=== PATIENT | male | born 1930 | race Caucasian/White ===

== ENCOUNTER 2017-09-14 18:01 | Inpatient (IN) | payer MEDICARE ==
[~2017-09-14] VITALS: Ht 172.7 cm; Wt 84.4 kg
[2017-09-14] VITALS (25 sets, daily range): BP systolic 67–138; BP diastolic 47–108; PULSE 123–128; RESP 19–31
[~2017-09-14 18:01] MED LIST: CA CHLORIDE 10% 10 ML SYRINGE ONE; EPINEPHrine 0.1 MG/ML SYG ONE; NA BICARBONATE 8.4% 50 ML SYG ONE
[2017-09-14] MEDS ORDERED: SOD CHLORIDE 0.9% 1,000 ML IV ONE (19:00)
[2017-09-14] MEDS ORDERED: DEXTROSE 5%-0.9% NACL 1,000 ML IV SCH (19:00)
[2017-09-14] MEDS ORDERED: DOCUSATE SODIUM 10 MG/ML (10ML CUP) GTB PRN (20:31)
[2017-09-14] MEDS ORDERED: PANTOPRAZOLE 40 MG INJ IV SCH (20:31)
[2017-09-14] MEDS ORDERED: CLOTRIMAZOLE 1% 30 GM CR TOP PRN (20:31)
[2017-09-14] MEDS ORDERED: CHOLECALCIFEROL 2,000 UNIT CAP GTB SCH (20:31)
[2017-09-14] MEDS ORDERED: VANCOMYCIN IV PER PHARMACY XX SCH (20:31)
[2017-09-14] MEDS ORDERED: ALBUTEROL/IPRATROPIUM (NEB) 3 ML AMP NEB SCH (20:31)
[2017-09-14] MEDS ORDERED: ONDANSETRON 4 MG INJ IV PRN (20:31)
[2017-09-14] MEDS ORDERED: ARTIFICIAL TEARS 15 ML OPH BOTH EYES PRN (20:31)
[2017-09-14] MEDS ORDERED: ACETYLCYSTEINE 20% 4 ML VIAL NEB SCH (20:31)
[2017-09-14] MEDS ORDERED: ZINC OXIDE 40% DESITIN 56 GM OINT TOP PRN (20:31)
[2017-09-14] MEDS ORDERED: ASPIRIN 81 MG TAB GTB SCH (20:31)
[2017-09-14] MEDS ORDERED: POLYETHYLENE GLYCOL 17 GM PACKET GTB PRN (20:31)
[2017-09-14] MEDS: FLUCONAZOLE 100 MG/NS (PMX) 50 ML IVPB SCH ×2 (20:31→21:49)
[2017-09-14] MEDS ORDERED: SALINE 0.65% 45 ML NAS SPRAY NASAL PRN (20:31)
[2017-09-14] MEDS ORDERED: SODIUM CHLORIDE 0.9% 1L BAG IV* SCH (20:31)
[2017-09-14] MEDS ORDERED: LORATADINE 10 MG TAB GTB SCH (20:31)
[2017-09-14] MEDS ORDERED: NA PHOSPHATE/BIPHOS 133 ML ENEMA PR PRN (20:31)
[2017-09-14] MEDS ORDERED: BALSAM PERU/CASTOR OIL 60 GM TUBE TOP PRN (20:31)
[2017-09-14] MEDS ORDERED: LACTOBACILLUS RHAMNOSUS CAP GTB SCH (20:31)
[2017-09-14] MEDS ORDERED: GUAIFENESIN 20 MG/ML 5ML CUP GTB PRN (20:31)
[2017-09-14] MEDS ORDERED: METOCLOPRAMIDE 10 MG INJ IV PRN (20:31)
[2017-09-14] MEDS ORDERED: ACETAMINOPHEN 650 MG SUPP PR PRN (20:31)
[2017-09-14] MEDS ORDERED: VANCOMYCIN HCL 250 MG/5ML POSYG GTB SCH (20:31)
[2017-09-14] MEDS ORDERED: BALSAM PERU/CASTOR OIL 60 GM TUBE TOP SCH (20:31)
[2017-09-14 20:54] LABS: AADO2 Arterial 200.4 mmHg (7.0-24.0); Allen Test ACCEPTAB; Arterial Base Excess -0.8 mmol/L (-3.0-3); Arterial COHb 0.3 % (0.0-3.0); Arterial Fraction of Oxyhgb 91.8 % (93.0-99.0); Arterial HCO3 19.7 mmol/L (22.0-26.0); Arterial MetHb 0.3 % (0.0-1.5); MODE VENT - AC
[2017-09-14] MEDS: PROPRANOLOL 20 MG TAB GTB SCH (21:00)
[2017-09-14] MEDS ORDERED: NORepinephrine 8MG/250 ML (PMX 250 ML IV SCH (21:00)
[2017-09-14] MEDS: DEXTROSE 5%-0.9% NACL 1,000 ML IV SCH (21:02)
[2017-09-14] MEDS: MEROPENEM 500MG/50 ML (PMX) 50 ML IVPB SCH (21:48)
[2017-09-14] MEDS: Metronidazole 500 MG in NS 100 ML IVPB SCH ×2 (21:49→22:00)
[2017-09-14] MEDS: CHLORHEXIDINE GLUCONATE 15 ML UD CUP MT SCH (21:50)
--- NOTE | 2017-09-14 22:08 | CONS ---
Date/Time of Note Date/Time of Note DATE: 09/14/17 TIME: 22:07 Assessment/Plan Assessment/Plan Additional Assessment/Plan consultation written in chart but account somehow changed and is in patients "other reports". here is copy Consultation Date/Time of Note Date/Time of Note DATE: 09/14/17 TIME: 19:55 Assessment/Plan Assessment/Plan Problems: (1) Obstructed internal hernia (2) Ischemia, bowel (3) Pneumatosis of intestines Additional Assessment/Plan 87M with multiple medical comorbidities noted to have recent distention, tachycardia, hypotension, leukocytosis, KUB and CT as above. looks to me internal hernia with bowel ischemia, pneumatosis. Prognosis VERY poor given medical history and acute events. Discussed care with patients family. Details of condition given to them at bedside. Long family discussion had. Reviewed patients wishes, POLST/Advanced Directives with family. Surgery offered but declined. Patients and family state that he would not want life support or invasive procedures. They express that he would want medications and comfort. No CPR / compressions. -Medical care and management as per ICU. very poor prognosis given history and current condition. -IV Abx and meds -pain meds -hold tube feeds as he will not tolerate them -IV fluids -Will have to discuss TPN if becomes stable. Thank you for allowing me to participate in this patients care. Consultation Date/Type/Reason Admit Date/Time Date of Consultation: Sep 14, 2017 Type of Consultation: Surgery Reason for Consultation Bowel ischemia, pneumatosis, internal hernia Hx of Present Illness 87 year old male with multiple medical comorbidities who has been bed bound and in nursing facility for some time now with trach/peg was urgently transferred to ICU for evaluation. Patient was at outside facility where during work up for abdominal distention he was noted to have abnormal xrays which prompted a CT scan that demonstrated likely internal hernia with pneumatosis, venous gas, and possible bowel ischemia. As per family he has note been responsive for some time now. He was recently at [facility] then released to SNF. He was not tolerating feeds and noted to be distended. KUB ordered and demonstrated possible free air, bowel digitation. CT as above. Surgery called to evaluate upon transfer to ICU. Medical records that are available were reviewed. Radiological exams reviewed. Labs reviewed. Patient examined. Long discussion with family at bedside about history and care. cannot obtain given patients medical condition Subjective hx not possible: pt non-verbal, pt critical, pt critical status Constitutional: diaphoresis Past Medical History Medical History: other (multiple; see records and HPI) Past Surgical History Trach and PEG Family History Significant Family History: other (non contributory. 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 Exam/Review of Systems Exam Constitutional: frail, non-verbal Head: atraumatic Eyes: nl conjunctiva ENMT: nl external ears & nose Neck: other (stiff/ trach) Respiratory: other (trach on vent ) Cardiovascular: edema, other (tachy, hypotensive ) Gastrointestinal: distended, firm, surgical scars Musculoskeletal: muscle weakness Extremities: edema Neurological: unresponsive Skin: ecchymosis Results Result Diagram: 09/14/17 0711 09/14/17 0711 Results 24 hrs Laboratory Tests Test 09/14/17 07:11 White Blood Count 23.2 H Red Blood Count 4.03 L Hemoglobin 12.4 L Hematocrit 37.8 L Mean Corpuscular Volume 93.8 Mean Corpuscular Hemoglobin 30.8 Mean Corpuscular Hemoglobin Concent 32.8 Red Cell Distribution Width 15.9 H Platelet Count 352 Mean Platelet Volume 11.2 H Neutrophils % 86.9 H Lymphocytes % 4.6 L Monocytes % 7.7 Eosinophils % 0.0 Basophils % 0.2 Nucleated Red Blood Cells % 0.0 Neutrophils # 20.1 H Lymphocytes # 1.1 Monocytes # 1.8 H Eosinophils # 0.0 Basophils # 0.1 Nucleated Red Blood Cells # 0.0 Prothrombin Time 15.1 H Prothrombin Time Ratio 1.2 INR International Normalized Ratio 1.17 Activated Partial Thromboplast Time 32.6 Sodium Level 139 Potassium Level 4.5 Chloride Level 101 Carbon Dioxide Level 25 Anion Gap 18 H Blood Urea Nitrogen 22 H Creatinine 1.07 Glucose Level 235 H Calcium Level 9.1 Phosphorus Level 2.5 Magnesium Level 2.0 Total Bilirubin 0.9 Direct Bilirubin 0.00 Indirect Bilirubin 0.9 Aspartate Amino Transf (AST/SGOT) 29 Alanine Aminotransferase (ALT/SGPT) 23 Alkaline Phosphatase 76 Total Protein 7.2 Albumin 3.2 L Globulin 4.00 H Albumin/Globulin Ratio 0.80 SUSAN CERVANTES MD Sep 14, 2017 20:10 <Electronically signed by SUSAN CERVANTES MD> 09/14/172009 Consultation Date/Type/Reason Admit Date/Time Sep 14, 2017 at 18:24 Exam/Review of Systems Vital Signs Vitals Vital Signs Date Time Temp Pulse Resp B/P Pulse Ox O2 Delivery O2 Flow Rate FiO2 09/14/17 20:57 126 30 100 40 09/14/17 18:45 76/60 09/14/17 18:21 98.0 Mechanical Ventilator Trach Collar Results Results 24 hrs Laboratory Tests Test 09/14/17 20:00 Blood Gas Specimen Source Blood arterial Arterial Blood Date Drawn 09/14/2017 8:40:18 PM Arterial Blood pH (Temp corrected) 7.563 *H Arterial Blood pCO2 (Temp correct) 22.4 L Arterial Blood pO2 (Temp corrected) 59.0 L Arterial Blood HCO3 19.7 L Arterial Blood Base Excess -0.8 Arterial Blood Oxygen Saturation 92.4 L Contreras Test ACCEPTAB Arterial Blood Gas Puncture Site Right Radial Arterial Blood Carboxyhemoglobin 0.3 Arterial Blood Methemoglobin 0.3 Blood Gas A-a O2 Differential 200.4 H Oxyhemoglobin Percent 91.8 L Total Hemoglobin 12.0 Blood Gas Temperature 37.0 Blood Gas Respiration Rate 12.0 Blood Gas Actual Respiration Rate 30 Blood Gas Modality VENT - AC FiO2 40.0 Blood Gas Tidal Volume 500.0 Blood Gas Low PEEP Setting 5.0 Blood Gas Critical Value Read Back SHAUNA CHIN Blood Gas Notified Whom LAURIE NOVAK Blood Gas Notified Time 09/14/2017 8:53:18 PM Medications Medications Current Medications Aspirin (Aspirin) 81 mg DAILY GTB ; Start 09/14/17 at 20:31 Chlorhexidine Gluconate (Peridex) 15 ml Q12 MT Last administered on 09/14/17t 21:50; Admin Dose 15 ML; Start 09/14/17 at 20:31 Ondansetron HCl (Zofran Inj) 4 mg Q6H PRN IV NAUSEA AND/OR VOMITING; Start 09/14/17 at 20:31 Propranolol HCl (Inderal) 20 mg BID GTB ; Start 09/14/17 at 20:31 Sodium Biphosphate/ Sodium Phosphate (Fleet Enema) 133 ml DAILY PRN MT CONSTIPATION; Start 09/14/17 at 20:31 Acetaminophen (Tylenol Supp) 650 mg Q4H PRN MT FEVER OR MILD PAIN; Start at 20:31 Lactobacillus Acidophilus/ Rhamnosus (Culturelle) 1 cap DAILY GTB ; Start at 20:31 Eye Lubricant (Artificial Tears Oph) 1 drop QID PRN BOTH EYES DRY EYES; Start 09/14/17 at 20:31 Loratadine (Claritin) 10 mg DAILY GTB ; Start 09/14/17 at 20:31 Cholecalciferol (Vitamin D) 2,000 unit DAILY GTB ; Start 09/14/17 at 20:31 Clotrimazole (Lotrimin Cr) 1 applic BID PRN TOP RASHES; Start 09/14/17 at 20:31 Guaifenesin (Robitussin Liquid Cup) 200 mg Q6H PRN GTB COUGH; Start 09/14/17 at 20:31 Polyethylene Glycol (Miralax) 17 gm DAILY PRN GTB CONSTIPATION; Start 09/14/17 at 20:31 Zinc Oxide (Desitin Maximum Strength) 1 applic TID PRN TOP WOUND CARE AND DIAPER CHANGE; Start 09/14/17 at 20:31 Simethicone (Mylicon) 80 mg QID PRN GTB DISTENSION/GAS/BLOATING; Start at 20:31 Sodium Chloride (Deep Sea) 2 spray QID PRN NASAL NASAL DRYNESS; Start 09/14/17 at 20:31 Docusate Sodium (Colace Liquid Cup) 100 mg BID PRN GTB CONSTIPATION; Start 09/14/17 at 20:31 Metoclopramide HCl (Reglan) 5 mg Q8H PRN IV DISTENTION; Start 09/14/17 at 20:31 Erythromycin Ethylsuccinate 200 mg 200 mg Q6 GTB ; Start 09/14/17 at 20:31 Dextrose/Sodium Chloride (D5-NS) 1,000 ml @ 125 mls/hr Q8H IV Last administered on 09/14/17t 21:02; Admin Dose 125 MLS/HR; Start 09/14/17 at 20:31 Pantoprazole (Protonix Iv) 40 mg DAILY@06 IV ; Start 09/14/17 at 20:31 Vancomycin HCl 250 mg 250 mg Q6 GTB ; Start 09/14/17 at 20:31; Status Future Hold Meropenem/Sodium Chloride 50 ml @ 100 mls/hr Q8 IVPB Last administered on 09/14 21:48; Admin Dose 100 MLS/HR; Start 09/14/17 at 20:31 Fluconazole/ Sodium Chloride (Diflucan 100 Mg/ NS (Pmx)) 50 ml @ 50 mls/hr Q24H IVPB ; Start 09/14/17 at 20:31 Vancomycin HCl PER PHARMACY DOSING NOTE XX ; Start 09/14/17 at 20:31 Metronidazole 100 ml @ 100 mls/hr Q8 IVPB Last administered on 09/14/17 21:49 ; Admin Dose 100 MLS/HR; Start 09/14/17 at 20:31 Vancomycin HCl 1.25 gm/Sodium Chloride 250 ml @ 83.333 mls/ hr Q24H IVPB ; Start 09/15/17 at 17:30 Norepinephrine 250 ml @ 3.75 mls/hr TITRATE IV ; Start 09/14/17 at 21:00; Stop 09/15/17 at 20:00 Norepinephrine/ Dextrose (Levophed/D5W) 500 ml @ 0 mls/hr TITRATE IV ; Start at 21:00 SUSAN CERVANTES MD Sep 14, 2017 22:08
[2017-09-14] MEDS: ERYTHROMYCIN ETHYL SUCC (80 MG/ML PO SYG) GTB SCH (23:11)
[2017-09-15] VITALS (35 sets, daily range): BP systolic 70–145; BP diastolic 35–122; PULSE 0–135; RESP 0–32; Ht 172.7 cm; Wt 84.4 kg
[2017-09-15] MEDS: ERYTHROMYCIN ETHYL SUCC (80 MG/ML PO SYG) GTB SCH ×2 (06:15→11:44)
[2017-09-15] MEDS: MEROPENEM 500MG/50 ML (PMX) 50 ML IVPB SCH (06:15)
[2017-09-15] MEDS: Metronidazole 500 MG in NS 100 ML IVPB SCH (06:16)
[2017-09-15] MEDS: DEXTROSE 5%-0.9% NACL 1,000 ML IV SCH (07:00)
[2017-09-15] MEDS ORDERED: ALBUTEROL HFA 8 GM INHALER INH SCH (08:00)
[2017-09-15] MEDS ORDERED: IPRATROPIUM (HFA) 12.9 GM INHALER INH SCH (08:00)
[2017-09-15] MEDS ORDERED: LIDOCAINE 1% (MPF) 5 ML VIAL SC ONE (08:30)
[2017-09-15 08:50] LABS: ABNORMAL IP MESSAGE 1; HEMOGLOBIN 10.9 g/dl (14.0-18.0); MEAN CORPUSCULAR HEMOGLOBIN 31.1 pg (29.0-33.0); MEAN CORPUSCULAR HGB CONC 32.1 g/dl (32.0-37.0); MEAN CORPUSCULAR VOLUME 96.9 fl (82.0-101.0); MEAN PLATELET VOLUME 11.7 fl (7.4-10.4); PLATELET COUNT 241 10^3/UL (140-415); POSITIVE DIFF @See below; RED BLOOD COUNT 3.51 10^6/ul (4.70-6.10); RED CELL DISTRIBUTION WIDTH 16.7 % (11.5-14.5); WHITE BLOOD COUNT 21.9 10^3/ul (4.8-10.8)
[2017-09-15 08:56] LABS: CALCIUM 8.1 mg/dl (8.4-10.2); CREATININE 1.67 mg/dl (0.61-1.24)
[2017-09-15] MEDS: PROPRANOLOL 20 MG TAB GTB SCH (09:00)
[2017-09-15 09:53] LABS: ANISOCYTOSIS 1+ (0-0); BURR CELLS 2+ (0-0); EOSINOPHILS % (M) 2 % (0-7); METAMYELOCYTES %M 2 % (0-0); MONOCYTES % (M) 11 % (0-11); PLATELET ESTIMATE NORMAL; POIKILOCYTOSIS 3+ (0-0); POLYCHROMASIA 3+ (0-0)
--- NOTE | 2017-09-15 11:00 | PN ---
Date/Time of Note Date/Time of Note DATE: 09/15/17 TIME: 10:53 Assessment/Plan Lines/Catheters IV Catheter Type (from Nrs): Peripheral IV Reyes in Place (from Nrs): Yes Subjective 24 Hr Interval Summary patient seen and examined at bedside. required pressors overnight. wbc improved today. cr elevated. minimal urine output. Subjective hx not possible: pt non-verbal, pt critical, pt critical status Feeding: NPO Additional Comments 87 year old critically ill male who presented with CT findings of internal hernia, pneumatosis, and possible bowel ischemia. After long discussion with family at bedside last night they had expressed that in his advanced directives he did not want life support, chest compressions, or invasive procedures. They stated he would want medical management. Overnight hypotensive, tachycardic, required pressors. On Abx. leukocytosis improved, renal function decline, no urine output. Had another discussion with family and now they are unsure and have considerations for more invasive plans. They requested to the primary team for a second opinion which I think is very fair and warranted. Continue with medical management. will await a second opinion. Exam/Review of Systems Vital Signs Vitals Vital Signs Date Time Temp Pulse Resp B/P Pulse Ox O2 Delivery O2 Flow Rate FiO2 09/15/17 09:45 116 28 138/64 09/15/17 09:00 Mechanical Ventilator 09/15/17 08:00 98.3 09/15/17 08:00 40 09/15/17 05:40 100 Intake and Output 09/14/17 09/14/17 09/15/17 15:00 23:00 07:00 Intake Total 1450 ml 844.8 ml Output Total 30 ml Balance 1420 ml 844.8 ml Results Result Diagram: 09/15/17 0802 09/15/17 0802 SUSAN CERVANTES MD Sep 15, 2017 11:00
[2017-09-15] MEDS: CHLORHEXIDINE GLUCONATE 15 ML UD CUP MT SCH (11:33)
[2017-09-15] MEDS: BALSAM PERU/CASTOR OIL 60 GM TUBE TOP SCH ×2 (11:33)
--- NOTE | 2017-09-15 11:58 | HP ---
DATE OF ADMISSION: 09/14/2017 HISTORY OF PRESENT ILLNESS: The patient is an 87-year-old gentleman with past medical history of Pa rkinson disease, diabetes, hypoxemic respiratory failure on mechanical ventilation. Patient transfe rred from [place] after a short 24-hour stay, having come from [place] after a prolonged hospitalizat ion for a complex hospital course including respiratory failure requiring tracheostomy, healthcare-a ssociated pneumonia, GJ tube malfunction with previous episodes of coffee-ground emesis. The patien t on admission noted to have vomiting and had a CT scan done, which showed likely internal hernia wi th pneumatosis, venous gas and possible bowel ischemia. Surgery was called to evaluate and after a long discussion, recommended medication management in light of the poor prognosis. PAST MEDICAL HISTORY: Significant for the above. MEDICATIONS: Currently include: 1. Vancomycin. 2. Albuterol. 3. Atrovent. 4. Norepinephrine. 5. Peridex. 6. Zofran. 7. Propranolol. 8. Fleets enema. 9. Lactobacillus. 10. Loratadine. 11. Cholecalciferol. 12. Clotrimazole cream. 13. Guaifenesin. 14. Polyethylene glycol. 15. Simethicone. 16. Sodium chloride spray. 17. Colace liquid. 18. Reglan. 19. Erythromycin. 20. Protonix. 21. Merrem. 22. Fluconazole. 23. Vancomycin. 24. Metronidazole. ALLERGIES: PATIENT HAS ALLERGY TO SULFA. SOCIAL HISTORY: Doesn't smoke, drink or use IV drugs. FAMILY HISTORY: No history of kidney disease. REVIEW OF SYSTEMS: A 14-point review of systems is attempted and negative unless otherwise stated. Patient is notable to have currently poor urine output since admission. PHYSICAL EXAMINATION: VITAL SIGNS: We see temperature 98, blood pressure is 90/70, heart rate 128. HEENT: Head is normocephalic, atraumatic. Pupils are hard to examine; eyes are deviated somewhat t o the right, but he is lying on his right side again. Mouth and throat: Limited exam. NECK: Fairly supple, without masses. HEART: Regular rate and rhythm. Heart tachy rate, but normal. Heart sounds are distant without mu rmurs or gallops appreciated. LUNGS: Bilateral rhonchi, no jany wheezing noted. ABDOMEN: Moderately distended. No bowel sounds are noted. G-J tube is in place. Some dark red bl ood was obtained from the tube. EXTREMITIES: No clubbing, cyanosis, edema. SKIN: Shows no rashes. NEUROLOGIC: The patient responds to noxious stimuli, moves extremities somewhat. Exam shows CT as above. LABORATORY EVALUATION: Show white count 21.9, hemoglobin 11, hematocrit 34. Sodium is 144, potassi um 4.0, BUN 32, creatinine 1.67. Chest x-ray and CT are reviewed with the radiologist. Plan of care was discussed in detail with the family, who have agreed to DNR. This was a greater than 30-minute discussion. However, I asked for a second opinion surgical consul tation. IMPRESSION: 1. Acute hypoxemic respiratory failure on ventilation. Continue vent support. 2. Shock, likely septic from intraabdominal infection. Options were discussed as far as a surgical and recommended by surgery to do medical route. Continue broad spectrum antibiotics. ID is follow ing. 3. Status post Pseudomonas aeruginosa pneumonia, on antibiotics per recommendation. 4. Tachycardia, which appears to be chronic, but probably physiologic in this situation, looks to b e sinus tachycardia at this time. Cardiology may need to be followed up. 5. Probable internal hernia with bowel ischemia pneumatosis. Recommended nonsurgical approach curr ently. May be just jany ischemic bowel. I explained to the family, who requested a second opinion , surgical evaluation which I've consulted. 6. History of borderline diabetes or jany diabetes. Try to get old records. Blood glucose is 249 here, which may be reactive post-acute kidney injury, possibly related to sepsis with ATN. Support skip care for the , no indication for dialysis yet. 7. Anemia, mild, worsening, possibly related to bleeding. Monitor serially. 8. History of parkinsonism and dementia, per report. Hold off on medicines at this time. CRITICAL CARE TIME: Greater than 60 minutes. Discussed case with Dr. Christopher Randolph. Dictated By: BOBBY PALM MD DF/ROSALINO Conf#: [id number] DID#: [id number] CC: MICHAEL FERREIRA DO;*EndCC*
--- NOTE | 2017-09-15 12:56 | PN ---
Date/Time of Note Date/Time of Note DATE: 09/15/17 TIME: 12:53 Assessment/Plan Lines/Catheters IV Catheter Type (from Nrsg): Peripheral IV Reyes in Place (from Nrsg): Yes Subjective 24 Hr Interval Summary Additional Comments Overhead Code Blue for patient while in hospital. Came to bedside. Patient hypoxic with no cardiac activity receiving medical ACLS support. As per report , quickly became bradycardic then asystole. No response with optimal medical intervention. As per family request prior no chest compressions or invasive procedures performed. Unfortunately unable to regain vitals. patient pronounced. family at bedside. Exam/Review of Systems Vital Signs Vitals Vital Signs Date Time Temp Pulse Resp B/P Pulse Ox O2 Delivery O2 Flow Rate FiO2 09/15/17 12:48 30 100 09/15/17 11:20 111 99 09/15/17 09:45 138/64 09/15/17 09:00 Mechanical Ventilator 09/15/17 08:00 98.3 Intake and Output 09/14/17 09/14/17 09/15/17 14:59 22:59 06:59 Intake Total 1275 ml 1019.8 ml Output Total 25 ml 5 ml Balance 1250 ml 1014.8 ml Results Result Diagram: 09/15/17 0802 09/15/17801 SUSAN CERVANTES MD Sep 15, 2017 12:56
--- NOTE | 2017-09-15 12:58 | EN ---
Date/Time of Note Date/Time of Note DATE: 09/15/17 TIME: 12:53 Event Note Medicine Medicine Event Note Called to see patient--recently transferred to the ICU from [facility] with an intra-abdominal catastrophy and DNR status (chemical code okay)-- for acute onset bradycardia with rapid evolution to PEA. Given that patient was DNR, chemical code with 3 rounds of epinephrine IVP, along with CaCl and NaHCO3 pushes, was initiated. Family was notified and the chemical code was aborted after ~ 15 minutes. Patient removed from the ventilator and pronounced at 12:52 pm. MERCY CLANCY MD Sep 15, 2017 12:58
[2017-09-15] MEDS ORDERED: VANCOMYCIN 1.25 GM in SOD CHLORIDE 0.9% 250 ML IVPB SCH (17:30)
--- NOTE | 2017-09-17 07:20 | PN ---
DATE: 09/15/2017 INFECTIOUS DISEASE PROGRESS NOTE SUBJECTIVE: Patient was transferred to ICU from [facility] secondary to septic shock. He is n onverbal, noncommunicative, obtunded, in no distress. He is currently off pressors since 7 a.m. VITAL SIGNS: Temperature 98.3, pulse 111, respirations 30, blood pressure 138/64, saturation 99 on 40 FIO2. LABORATORY DATA: WBC 21.9, H and H 10.9 and 34, platelets 241, bands 40. Normal lytes, BUN 32, cre atinine 1.67. DIAGNOSTICS: CT of the abdomen revealed multiple loops of dilated fluid-filled small bowel. Air is noted within the folds of the mid to distal jejunum, highly concerning for pneumatosis and underlyi ng bowel ischemia. There are multiple foci of extraluminal air which appeared to be located within mesenteric vascular structures, highly concerning for mesenteric venous air. Questionable small-bow el obstruction. Air identified also involves the stomach, worrisome for gastric emphysema. Multipl e foci of air noted within the left lower liver, suspicion for portal venous air. Diffuse atheroscl erosis of the aorta. A percutaneous feeding tube with distal tip within a dilated loop of proximal jejunum. INDWELLINGS: Trach, PEG, Reyes. ANTIMICROBIALS: 1. Vancomycin 2. Meropenem. 3. Fluconazole. 4. Flagyl. PHYSICAL EXAMINATION: GENERAL: This is a cachectic, chronically ill-appearing, elderly man who is obtunded, in no distres s. HEENT: Atraumatic, normocephalic. Sclerae anicteric. Buccal mucosa dry. NECK: Supple. CHEST: Rise symmetrical. Breath sounds diminished in the bases. HEART: S1, S2. ABDOMEN: Distended, bowel sounds absent. EXTREMITIES: Cyanotic with trace edema. ASSESSMENT: 1. Severe sepsis with shock and multisystem organ failure. 2. Abdominal distention with evidence of pneumatosis and possible bowel ischemia. 3. Clostridium difficile colitis. 4. Chronic respiratory failure. 5. Dysphagia. 6. History of healthcare-associated pneumonia. PLAN: The patient remains unstable. Overall, doing poorly, not a surgical candidate. He is a CHEM ICAL CODE ONLY, continue current antibiotics. Dictated By: CYRUS PARSONS MONKEY BREEDER for PLACIDO BRUMFIELD/ROSALINO Conf#: [id number] DID#: [id number] CC: MICHAEL FERREIRA DO;*EndCC*
== END 2017-09-15 12:52 | disposition expired | DRG 871 ==
LOC: ICU 18:24
PROVIDERS: ADMIT Internal Medicine; ATTEND Internal Medicine
PROC: 5A1935Z Respiratory Ventilation, Less than 24 Consecutive Hours (ICD-10-PCS; principal; 2017-09-14)
DX: A41.9 Sepsis, unspecified organism (principal); R65.21 Severe sepsis with septic shock; J96.01 Acute respiratory failure with hypoxia; N17.0 Acute kidney failure with tubular necrosis; Z99.11 Dependence on respirator [ventilator] status; J18.9 Pneumonia, unspecified organism; K55.9 Vascular disorder of intestine, unspecified; A04.72 Enterocolitis due to Clostridium difficile, not specified as recurrent; K46.0 Unspecified abdominal hernia with obstruction, without gangrene; Z93.0 Tracheostomy status; K63.89 Other specified diseases of intestine; Z93.1 Gastrostomy status; Z74.01 Bed confinement status; R73.03 Prediabetes; G20 Parkinson's disease; F02.80 Dementia in other diseases classified elsewhere, unspecified severity, without behavioral disturbance, psychotic disturbance, mood disturbance, and anxiety; R00.0 Tachycardia, unspecified; D64.9 Anemia, unspecified; Z66 Do not resuscitate; R13.10 Dysphagia, unspecified; Y95 Nosocomial condition
CPT/HCPCS: 36600; 80048; 82803; 85025; 87075; 87081; 94002; 94003; 94640; C9113; J0171; J1450; J2185; J3370; J7030; J7042; J7050; J7060